=== PATIENT | male | born 1970 | race Caucasian/White ===

== ENCOUNTER 2022-06-14 20:14 | Emergency (ER) | payer BC ==
[2022-06-14] MEDS ORDERED: Lactated Ringers 1,000 ML IV SCH (20:45)
[2022-06-14 21:31] LABS: BLOOD UREA NITROGEN,BUN 17 mg/dL (7.0-18.0); CHLORIDE,CL 105 mmol/L (98-107); GLUCOSE RANDOM 89 mg/dL (74-106); LIPASE 149 U/L (73-393); POTASSIUM,K 3.7 mmol/L (3.5-5.1); SODIUM,NA 142 mmol/L (136-148)
[2022-06-14 21:31] LABS: CORONAVIRUS COVID-19 NAA NEGATIVE (NEGATIVE); INFLUENZA A NAA NEGATIVE (NEGATIVE); INFLUENZA B NAA NEGATIVE (NEGATIVE); RESPIRATORY SYNCYTIAL VIR NAA NEGATIVE (NEGATIVE)
[2022-06-14 21:33] LABS: ESTIMATED GFR 66 mL/min (>60)
[2022-06-14 21:44] LABS: ACETAMINOPHEN <2.0 ug/mL
[2022-06-15 01:40] LABS: CARBON DIOXIDE,CO2 28.2 mmol/L (21.0-32.0); POTASSIUM,K 3.7 mmol/L (3.5-5.1)
== END 2022-06-15 02:00 | disposition home or self-care (01) ==
LOC: MW.ED 20:14
DX: T51.1X1A Toxic effect of methanol, accidental (unintentional), initial encounter (principal); I10 Essential (primary) hypertension; Z20.822 Contact with and (suspected) exposure to COVID-19
CPT/HCPCS: 0241U; 36415; 71045; 80048; 80053; 80143; 80179; 80305; 80307; 83605; 83690; 83735; 83930; 83935; 85025; 96360; 99284; J7120; 99283